=== PATIENT | female | born 1965 | race Caucasian/White ===

== ENCOUNTER 2024-05-09 23:31 | Emergency (ER) | payer MEDICARE, SELFPAY ==
[2024-05-09 23:32] VITALS: BP 121/86; PULSE 70; TEMP 36.5; O2SAT 98
[2024-05-09 23:39] VITALS: BP 121/86; PULSE 89; RESP 18; TEMP 36.5; O2SAT 96
--- NOTE | 2024-05-10 | ED_ITS ---
HPI - Extremity Problem General Chief complaint: Extremity Problem,Nontraumatic Stated complaint: pinched nerve Time Seen by Provider: 05/09/24 23:48 History of Present Illness HPI Narrative: 59-year-old female with a past medical history including chronic peripheral neuropathy, alcohol abuse, rheumatoid arthritis, hemochromatosis. Patient presents from her long-term facility for concerns of bilateral paresthesias in her hands and feet. She states she was having pain in her arms and legs that feel like paresthesias and neuropathy type pain. She exhibited them after working out intensely at physical therapy today. She states she has been trying to recover and get her strength back so she can go back home. She is in the nursing facility for rehabilitation. No recent hospitalizations or injuries. Denies any fever, chills, headache, vision change, abdominal pain, weakness. 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 No facial asymmetry. States it feels like her neuropathy is acting up on her and maybe even pinched nerve but it is symmetric in both arms and legs. No falls or trauma. Related Data Allergies Allergy/AdvReac Type Severity Reaction Status Date / Time Sulfa (Sulfonamide Allergy Unknown Unknown Verified 05/09/24 23:40 Antibiotics) Review of Systems 2 Review of Systems: As reviewed above in HPI Exam 2 Narrative: GENERAL: Thin and frail but not any acute distress, answering all questions appropriately, awake alert oriented. HEAD: [Normocephalic, atraumatic.] EYES: [PERRLA and EOMI.] ENT: Nares clear, no rhinorrhea or epistaxis. Mucous membranes moist. NECK: Supple. CHEST: [Clear to auscultation. No respiratory distress.] HEART: [Regular rate and rhythm]. No murmur heard. [Normal peripheral pulses.] ABDOMEN: [Soft, nondistended], [nontender], [No rigidity or guarding] EXTREMITIES: Normal range of motion. [No edema.] SKIN: Warm, dry, no rash. NEURO: [No focal deficits]. Alert and oriented [x3.] No drift in the arms or legs, symmetric strength throughout both arms and legs. No sensory deficits. No numbness. No facial asymmetry. PSYCH: [Normal mood and affect.] Course Vital Signs Vital signs: Vital Signs Temperature 36.5 C 05/09/24 23:32 Pulse Rate 70 05/09/24 23:32 Blood Pressure 121/86 05/09/24 23:32 Pulse Oximetry 98 05/09/24 23:32 Oxygen Delivery Room Air 05/09/24 23:32 Temperature 36.5 C 05/09/24 23:39 Pulse Rate 89 05/09/24 23:39 Respiratory Rate 18 05/09/24 23:39 Blood Pressure 121/86 05/09/24 23:39 Pulse Oximetry 96 05/09/24 23:39 Oxygen Delivery Room Air 05/09/24 23:32 MDM - Extremity (Nontraumatic) MDM Narrative Medical decision making narrative: 59-year-old female presenting from long-term facility for concerns of bilateral paresthesias in her hands and feet. She has a history of chronic neuropathy and paresthesias. Alcohol abuse in the past, rheumatoid arthritis, hemochromatosis. She is at her nursing facility for rehabilitation she was malnourished and had generalized weakness at home. She otherwise appears well, very active, alert oriented, normal vital signs, unremarkable examination with normal neurovascular assessment. No signs of any trauma or injury. She has symmetric strength and sensation, no facial asymmetries. Suspicion presently is for potential electrolyte derangements, malnutrition, rhabdomyolysis given the intense physical therapy she is doing, dehydration. Low suspicion for intracranial pathology and no present need for CT images. Will assess with basic laboratory studies, CBC, CMP, CPK and magnesium level. She was given a fluid bolus and Toradol for analgesia. She will be re-evaluated. Placed on nuclear monitoring technician. Patient's workup was reassuring. No leukocytosis, hemoglobin 10.1 with no baseline to compare to but appears chronic as she has macrocytosis. Normal platelet count. Electrolytes unremarkable. Normal renal function, normal hepatic function. Negative CPK. Patient was re-evaluated after Toradol with no significant change. Given her unremarkable workup and finding consistent with peripheral neuropathy with history of and I will give her short course of gabapentin to trial. Patient also told me that she was having some loose stools and on review of her medications at the facility she is on 6 different laxative type medications and likely causing this. She was given a dose of Imodium here. Patient is safe and stable for discharge at this time. Lab Data 05/10/24 00:06 05/10/24 00:06 Labs: Lab Results 05/10/24 Range/Units 00:06 WBC 5.5 (4.5-10.0) K/mm3 RBC 3.12 L (4.2-5.4) M/mm3 Hgb 10.1 L (12.0-15.0) g/dL Hct 32.2 L (37.0-47.0) % MCV 103.2 H (80-100) fl MCH 32.4 (26-34) pg MCHC 31.4 L (32-36) g/dl RDW 13.8 (11.5-14.5) % Plt Count 228 (150-375) k/mm3 MPV 9.5 (7.4-10.4) fl Immature Gran % (Auto) 0.2 (0-0.5) % Neut % (Auto) 62.9 (45.5-73.1) % Lymph % (Auto) 24.4 (18.3-44.2) % Baca % (Auto) 8.8 H (2.6-8.5) % Eos % (Auto) 3.5 (0-4.4) % Baso % (Auto) 0.2 (0.2-1.2) % Lymph # (Auto) 1.33 (0.9-3.2) K/mm3 [place] # (Auto) 0.5 (0.1-0.6) K/mm3 Eos # (Auto) 0.2 (0-0.3) K/mm3 Baso # (Auto) 0.0 (0.0-0.1) K/mm3 Abs Immat Gran (auto) 0.01 (0.00-0.031) K/mm3 Absolute Neuts (auto) 3.4 (1.3-6.7) K/mm3 Absolute Nucleated RBC 0.000 (0.0-0.012) K/mm3 Nucleated RBC % 0.0 (0.0-0.2) % Sodium 140 (137-145) mmol/L Potassium 3.5 (3.4-5.0) mmol/L Chloride 106 (98-107) mmol/L Carbon Dioxide 30 (22-30) mmol/L Anion Gap 4 (4-12) mmol/L BUN 18 H (7-17) mg/dL Creatinine 0.73 (0.7-1.0) mg/dL Estim Creat Clear Calc 48 ml/min Estimated GFR > 60 (59 - ) Glucose 91 (65-110) mg/dL Calcium 9.2 (8.4-10.2) mg/dL Magnesium 2.0 (1.6-2.3) mg/dL Total Bilirubin 0.2 (0.2-1.3) mg/dL AST 25 (14-36) U/L ALT 16 (6-35) U/L Alkaline Phosphatase 139 H (38-126) U/L Total Creatine Kinase 23 L (30-135) U/L Total Protein 6.0 L (6.3-8.2) g/dL Albumin 3.6 (3.5-5.1) g/dL Discharge Plan Discharge Clinical Impression: Peripheral neuropathy, Diarrhea Patient Disposition: NH Halfway/Asst Living Condition: Stable Instructions: Antibiotic Form Additional Instructions: Your workup here was very reassuring, we will send you home with some gabapentin which can help with peripheral neuropathy in nerve type pain which sounds like what you are experiencing. Your diarrhea is likely caused by your multiple medications that include several different laxatives. We have given you a dose of Imodium here and recommend that your nursing facility cut back on your laxative medications Patient Language: Micronesian Prescriptions: New gabapentin 100 mg capsule 100 mg PO TID PRN (Reason: Peripheral neuropathy) Qty: 30 0RF Stand Alone Forms: Senior Care Discharge Time of Disposition: 01:05
[2024-05-10 00:11] LABS: Basophils Percent Auto 0.2 % (0.2-1.2); Eosinophils Absolute Auto 0.2 K/mm3 (0-0.3); Eosinophils Percent Auto 3.5 % (0-4.4); Hematocrit 32.2 % (37.0-47.0); Hemoglobin 10.1 g/dL (12.0-15.0); Immature Granulocyte Absolute 0.01 K/mm3 (0.00-0.031); Immature Granulocyte Percent A 0.2 % (0-0.5); Lymphocytes Absolute Auto 1.33 K/mm3 (0.9-3.2); Lymphocytes Percent Auto 24.4 % (18.3-44.2); Mean Corpuscular HGB Conc 31.4 g/dl (32-36); Mean Corpuscular Hemoglobin 32.4 pg (26-34); Mean Corpuscular Volume 103.2 fl (80-100); Mean Platelet Volume 9.5 fl (7.4-10.4); Monocytes Absolute Auto 0.5 K/mm3 (0.1-0.6); Monocytes Percent Auto 8.8 % (2.6-8.5); Neutrophils Absolute Auto 3.4 K/mm3 (1.3-6.7); Neutrophils Percent Auto 62.9 % (45.5-73.1); Platelet Count Result 228 k/mm3 (150-375); Red Blood Count 3.12 M/mm3 (4.2-5.4); Red Cell Distribution Width 13.8 % (11.5-14.5); White Blood Count 5.5 K/mm3 (4.5-10.0)
[2024-05-10 00:23] LABS: Alanine Aminotransferase 16 U/L (6-35); Albumin Level 3.6 g/dL (3.5-5.1); Alkaline Phosphatase 139 U/L (38-126); Anion Gap 4 mmol/L (4-12); Aspartate Amino Transferase 25 U/L (14-36); Bilirubin,Total 0.2 mg/dL (0.2-1.3); Blood Urea Nitrogen 18 mg/dL (7-17); Calcium 9.2 mg/dL (8.4-10.2); Carbon Dioxide 30 mmol/L (22-30); Chloride 106 mmol/L (98-107); Creatine Kinase 23 U/L (30-135); Estimated CRCL calculation 48 ml/min; Estimated Glomerular Filt Rate > 60; Glucose 91 mg/dL (65-110); Potassium 3.5 mmol/L (3.4-5.0); Sodium 140 mmol/L (137-145)
[2024-05-10] MEDS: KETOROLAC 15 MG/ML VIAL (*BKC) IV PUSH (00:31)
[2024-05-10] MEDS: LACTATED RINGERS 1,000 ML 999 ML IV CONT (00:32)
--- OUTSIDE RECORDS SUMMARY | 2024-05-10 01:24 | XMS_ITS | Clinical Summary ---
Author Organization [facility] [employer] Address [address] [place] [address] Care Team Providers Care Estimating Engineer Name Role Phone Roselia Johnson MD Unavailable [phone] Blair Sun DO Unavailable [phone] Gerry Sweeney MD Unavailable [phone] Orestes Arrieta MD Unavailable [phone] Geno Montes MD Primary Care Provider Source Comments [facility],non-owned Affiliates and Associated Physician Practices is amultiple site organization consisting of ambulatory clinics and hospital sitesin [place], [place], [place] and [place]. This disclosure is being madepursuant to the Care Everywhere program and may not contain all information available regarding this patient. Last updated 17.[facility] [employer] Allergies Active Allergy Reactions Criticality Noted Date Comments Hydromorphone 05/31/2012 Nausea/vomiting Nitrofurantoin GI Discomfort 10/01/2021 Methotrexate Nausea and/or Vomiting 01/12/2015 Severe nausea, mood swings, blurred vision, dizziness Morphine Itching Low 08/29/2014 Patient reports she tolerates morphine (10/06/2021) Naproxen Nausea and/or Vomiting 03/08/2018 Fluoxetine Other 02/18/2012 wiped me out Sulfa Drugs Other 10/25/2014 Makes psoriasis worse Tramadol Headache 08/28/2022 Tofacitinib Citrate Nausea and/or Vomiting 08/2019 Memory loss Medications * Be aware that medications may not be up to date on this document. Alwaysverify current medications with the patient. Medication Sig Dispensed Refills Start Date End Date Status omeprazole (PriLOSEC) 20 MG capsuleIndication s:Gastroesophagea l Reflux Disease Take 1 (one) capsule by mouth daily before breakfast Reasons: Gastroesophageal Reflux Disease Active Premarin 0.625 MG tabletIndications :Postmenopausal Osteoporosis Take 1 (one) tablet by mouth once daily Reasons: Postmenopausal Osteoporosis 10/04/2021 Active folic acid (Folvite) 1 MG tabletIndications :Folate Deficiency Anemia Take 1 (one) tablet by mouth once daily 90 tablet 4 12/04/2021 Active Spacer/Aero-Holdi ng Chambers CLEM Use 1 device as needed 1 device 12/05/2021 Active Vitamin D3, cholecalciferol, 50 MCG (2000 UT) tabletIndications :Vitamin D Deficiency Take 1 (one) tablet by mouth once daily Reasons: Vitamin D Deficiency Active cyanocobalamin (Vitamin B-12) 1000 MCG tabletIndications :Vitamin B12 Deficiency Take 1 (one) tablet by mouth once daily Reasons: Inadequate Vitamin B12 Active albuterol HFA (Proventil; Ventolin; Proair) 108 (90 Base) MCG/ACT inhaler INHALE 2 PUFFS BY MOUTH EVERY 6 HOURS NEEDED 18 g 1 05/28/2022 Active temazepam (Restoril) 30 MG capsuleIndication s:Insomnia TAKE 1 CAPSULE BY MOUTH EVERYDAY AT BEDTIME 30 capsule 06/18/2022 Active Additional Information Patient not taking.Reported on 12/03/2022 acetaminophen-cod eine (Tylenol #3) 300-30 MG tablet 07/01/2022 Active fluconazole (Diflucan) 100 MG tablet Take 1 (one) tablet by mouth once daily 07/01/2022 Active lidocaine (Lidoderm) 5 % patchIndications: Postherpetic Neuralgia Apply 1 (one) patch to skin once daily Apply patch to most painful area and remove after 12 hours. May reapply a new patch 12 hours later. 15 patch 08/19/2022 Active hydrocortisone (Hytone) 1 % creamIndications: Dermatitis Apply to affected area 2 times daily 60 g 09/25/2022 Active temazepam (Restoril) 15 MG capsule Take 1 (one) capsule by mouth nightly as needed for Insomnia 30 capsule 1 10/24/2022 Active Additional Information Patient not taking.Reported on 12/03/2022 temazepam (Restoril) 15 MG capsule Take 1 (one) capsule by mouth nightly as needed for Insomnia 30 capsule 1 11/07/2022 Active Additional Information Patient not taking.Reported on 12/03/2022 omeprazole EC (PriLOSEC OTC) 20 MG tablet Take 1 (one) tablet by mouth daily before breakfast Active predniSONE (Deltasone) 20 MG tabletIndications :Contact Dermatitis Take 3 tablets daily for 3 days, take 2 tablets daily for 3 days, take 1 tablet daily for 3 days. Reasons: Contact Dermatitis 18 tablet 01/28/2023 Active promethazine-DM syrup Take 5 mL by mouth every 6 hours as needed for Cough 240 mL 01/28/2023 Active HYDROcodone-aceta minophen (Trenton) 5-325 MG tabletIndications :Pain Take 1 (one) tablet by mouth 2 times daily as needed for Pain 60 tablet 01/28/2023 Active ondansetron, disintegrating, (Zofran ODT) 4 MG tablet Take 1 (one) tablet by mouth every 6 hours as needed for Nausea/Vomiting Allow tablet to dissolve on the tongue 12 tablet 1 02/17/2023 Active ixekizumab (Taltz) 80 MG/ML auto-injector penIndications:Ps oriatic arthritis (HCC) INJECT 1 PEN (80MG) SUBCUTANEOUSLY EVERY 28 DAYS Dx: L40.50 NO LOADING NEEDED this is Continuation from other pharmacy. 1 mL 2 04/16/2023 Active pregabalin (Lyrica) 25 MG capsule Take 25 mg by mouth 3 times daily. 02/22/2024 Active metoclopramide (Reglan) 5 MG tablet Take 5 mg by mouth 3 times daily before meals. 02/22/2024 Active HYDROcodone-aceta minophen (Trenton) 7.5-325 MG tabletIndications :Pain Take 1 tablet by mouth every 8 hours as needed for Pain (MODERATE TO SEVER). Indications: Pain 02/22/2024 Active traZODone (Desyrel) 50 MG tablet Take 25 mg by mouth nightly as needed for Insomnia. TAKE 1/2 TABS OF 50MG TO EQUAL 25MG AT HS PRN 02/22/2024 Active diphenoxylate-atr opine (Lomotil) 2.5-0.025 MG tablet Take 1 tablet by mouth 4 times daily. 02/22/2024 Active Active Problems Problem Noted Date Diagnosed Date Bilateral foot pain 09/29/2022 Acute pain of right knee 06/23/2022 Primary osteoarthritis of right knee 06/23/2022 Protein-calorie malnutrition, unspecified severi ty 03/31/2022 Acute kidney injury 10/06/2021 Paraparesis 07/04/2021 Abnormal findings on diagnostic imaging of diges tive system 06/11/2021 Gastroesophageal reflux disease with esophagitis 06/11/2021 Closed wedge fracture of lum bar vertebra, unspecified lumbar vertebral level, initial encounter 05/29/2021 Inflammatory polyarthropathy 02/20/2021 Immunosuppressed status 02/20/2021 Chronic obstructive pulmonary disease 02/20/2021 Elevated LFTs 10/04/2018 Degeneration of lumbar or lumbosacral interverte bral disc 09/07/2018 Gastroesophageal reflux disease 07/28/2018 Nausea & vomiting 07/28/2018 Dumping syndrome 12/14/2017 Sucrose intolerance 12/14/2017 Elevated HDL 10/08/2017 Seasonal allergic rhinitis due to pollen 016 Chronic insomnia 08/27/2015 Psoriatic arthritis 04/18/2015 Bilateral hip joint arthritis 12/28/2014 Elevated ferritin level 02/14/2014 Benign hypertension 02/25/2013 Herniated nucleus pulposus, L5-S1 06/16/2012 Sciatica 06/16/2012 Radicular neuropathy 06/16/2012 Hemochromatosis 10/03/2010 Palpitations 01/25/2010 Abnormal loss of weight 01/25/2010 Resolved Problems Problem Noted Date Diagnosed Date Resolved Date Sore throat 04/08/2018 04/15/2018 Rheumatoid arthritis involvi ng multiple sites with positive rheumatoid factor 11/19/2015 11/19/19 16 Psoriatic arthritis 05/22/2015 11/19/19 16 Overview (05/22/2015): Psoriatic arthritis (diagnosis based on psoriasis, polyarthralgia, inflammatory back pain, elevated CRP in the past, psoriatic nail changes, x-rays of bilateral hip consistent with sclerosis), initially started on methotrexate and folic acid without much improvement so started on Enbrel in April, Diarrhea 02/17/2014 12/16/2017 Burn 05/13/2011 06/17/2017 Chest pain 01/25/2010 06/17/2017 Encounters Date Type Department Care Team Description 04/20/2024 Transitional Care [facility] - Care Coordination [address] [place] [address] Angle Ruvalcaba, suspender maker 04/20/2024 Patient Outreach [facility] - Care Coordination [address] [place] [address] Angle Ruvalcaba, RN Transitions Of Care 04/15/2024 Patient Outreach [facility] - Care Coordination [address] [address] Angle Ruvalcaba, RN Transitions Of Care 04/08/2024 Patient Outreach [facility] - Care Coordination [address] [address] Angle Ruvalcaba, RN Transitions Of Care 04/01/2024 Transitional Care [facility] - Care Coordination [address] [address] Angle Ruvalcaba, suspender maker 04/01/2024 Transitional Care [facility] Care Coordination [address] [place] [address] Blair Judge, RAVI Transitions Of Care 03/08/2024 Home Care Visit [facility] Health at [facility] [address], [place] [address] Niki Stern, RN CARE CONFERENCE 03/07/2024 10:00 AM [employer] Home Care Visit [facility] at Home Home [facility] [address], [place] [address] Carleen Morel, RAVI SN OASIS DISCHARGE 03/01/2024 Home Care Visit [facility] at [facility] [address], [place] [address] Niki Stern, RN CASE COMMUNICATION 03/01/2024 Home Care Visit [facility] at [facility] [address], [place] [address] Niki Stern, RN CASE COMMUNICATION 03/01/2024 Home Care Visit [facility] [address] [phone] Niki Stern, RN CASE COMMUNICATION 02/29/2024 9:45 AM [employer] Home Care Visit [facility] [address] , [address] [phone] Niki Stern, RN SN HOME VISIT 02/29/2024 Home Care Visit [facility] [address] , [address] [phone] Niki Stern, RN CASE COMMUNICATION 02/24/2024 2:30 PM [employer] Home Care Visit [facility] [address] , [address] [phone] Costa Epperson LPN SN HOME VISIT 02/24/2024 Home Care Visit [facility] [address] , [address] [phone] Avril Medina, RAVI CASE COMMUNICATION 02/22/2024 8:00 AM [employer] Home Care Visit [facility] [address] , [address] [phone] Will Samayoa MD Carson, Andrea K, RN SN OASIS START OF CARE 02/22/2024 Home Care Visit [facility] [address] , [address] [phone] Niki Stern, RN CASE COMMUNICATION 02/22/2024 Plan of Care Documentation [facility] [address] , [address] [phone] 02/17/2024 Transcribe Orders [facility] Scheduling [address] [place] [address] Tomeka Dunbar Non-pressure chronic ulcer of right calf with fat layer exposed ; Nicotine dependence, other tobacco product, with unspecified nicotine-induced disorders from Last 3 Months Immunizations Name Administration Dates Next Due INFLUENZA VACCINE 10/23/2017, 7,10/30/2015,2014,12/19/2011 INFLUENZA VACCINE, CELL CULT URE, QUADR. (FLUCELVAX QUADRIVALENT; 6MO+) (CCIIV4) 11/11/2018 INFLUENZA VACCINE, QUADR. (F LUZONE; FLULAVAL; FLUARIX; AFLURIA QUADRIVALENT; 6MO+), 0.5 ML (IIV4) 12/13/2021,10/19/2020,09/23/2019,2017 Pneumococcal Pcv13 Conj 01/02/2020,02/14/2014 TD (AGE 7-ADULT) 01/25/1999 TDAP (7yrs+) 06/17/2017 TDAP, HISTORIC VACCINE 06/18/2017 Family History Medical History Relation Name Comments Brain Tumor Father Cancer - Lung Father Diabetes - Type 2 Mother Other - Hepatic/Liver Mother Relation Name Status Comments Father Mother Social History Tobacco Use Types Packs/Day Years Used Date Smoking Tobacco: Every Day Cigarettes 0.3 17 Smokeless Tobacco: Never Tobacco Cessation:Ready to Q uit: No; Counseling Given: Yes Comments:3 cig/day. Reports quitting cold turkey in the past. She states that she will quit once her divorce is finalized Alcohol Use Standard Drinks/Week Comments Not Currently 2 (1 standard drink = 0.6 oz pur e alcohol) OASIS D0700: Social Isolation Answer Da te Recorded Frequency of experiencing loneliness or isolatio n Never 03/07/2024 OASIS A1250: Transportation Answer Date Recorded Lack of Transportation (Medical) No 03/07/2024 Lack of Transportation (Non-Medical) No 03/07/2024 Patient Unable or Declines to Respond No 03/07/2024 OASIS B1300: Health Literacy Answer Bassam e Recorded Frequency of needing help to read materials from doctor or pharmacy Never 03/07/2024 AUDIT-C Answer Date Recorded Q1: How often do you have a drink containing alc ohol? Patient declined 11/19/2022 Average Number of Drinks Not on file 023 Frequency of Binge Drinking Not on file 11/09 PHQ-2 Answer Date Recorded Patient Health Questionnaire-2 Score 0 09/25/2022 Hunger Vital Sign Answer Date Recorded Within the past 12 months, y ou worried that your food would run out before you got the money to buy more. Never true 10/08/19 22 Within the past 12 months, t he food you bought just didn't last and you didn't have money to get more. Never true 10/07/2021 Education Answer Date Recorded What is the highest level of school you have completed or the highest degree you have received? Some college, no degree 06/23/2022 Sex and Gender Information Value Date Recorded Sex Assigned at Not on file Gender Identity Not on file Sexual Orientation Not on file Last Filed Vital Signs Vital Sign Reading Time Taken Comments Blood Pressure 112/84 03/07/2024 10:22 AM [employer] Pulse 77 03/07/2024 10:22 AM [employer] Temperature 36.2 C (97.2 F) 03/07/2024 10:22 AM [employer] Respiratory Rate 16 03/07/2024 10:22 AM [employer] Oxygen Saturation 95% 03/07/2024 10:22 AM [employer] Inhaled Oxygen Concentration - - Weight 42.2 kg (93 lb) 02/29/2024 1:50 PM [employer] Height 172.7 cm (5' 8 ) 02/29/2024 1:50 PM [employer] Body Mass Index 14.14 02/29/2024 1:50 PM [employer] Plan of Treatment Health Maintenance Due Date Last Done Comments COLOGUARD (AGES 45-75) - COLON CA SCREENING 1965 CT COLONOGRAPHY - COLON CA SCREENING 1965 FIT - COLON CA SCREENING 1965 FLEX SIG - COLON CA SCREENING 1965 HEPATITIS B VACCINE (1 of 3 - 19+ 3-dose series) 1984 ZOSTER VACCINE (1 of 2) 1984 PNEUMOCOCCAL VACCINE 50+ (2 of 2 - PPSV23) 02/27/2020 01/02/2020, 02/14/2014 MAMMOGRAM 05/11/2023 05/10/2021, 04/0 02/2021, 05/10/2021 (Done Outside Per Report), Additional history exists COVID-19 VACCINE ( season) 2023 09/25/2021, 10/26/2020, 05/09/2020, Additional history exists DEPRESSION SCREENING 02/10/2024 03/14/2022, 06/08/19 22 MEDICARE AWV CALENDAR YEAR 2024 COLON MONITORING 03/01/2024 03/01/2014, 03/01/2014 DTAP/TDAP/TD VACCINES (4 - Td or Tdap) 06/19/2027 06/18/2017, 06/17/2017, 01/25/1999 LIPID TESTING 08/21/2027 08/20/2022, 09/09, 04/26/2016, Additional history exists COLONOSCOPY - COLON CA SCREENING 04/29/2033 04/30/2023, 03/01/2014, 03/01/2014 Colorectal Cancer Screening 04/29/2033 HIV SCREENING Completed 02/16/2014 HEPATITIS C SCREENING Completed 01/21/2022 , 09/17/2021, 11/10/2020, Additional history exists INFLUENZA VACCINE Completed 11/09/2023, , 12/13/2021, Additional history exists HIB VACCINE Aged Out No longer eligi ble based on patient's age to complete this topic HPV VACCINE Aged Out No longer eligi ble based on patient's age to complete this topic MENINGOCOCCAL (Group B) VACCINE SHARED DECISION-MAKING Aged Out No longer eligible based on patient's age to complete this topic MENINGOCOCCAL GROUPS A/C/Y/W VACCINE Aged Out No longer eligible based on patient's age to complete this topic Goals Goal Patient Goal Type Associated Problems Recent Progress Patient-Stated? Author Blood Pressure < 140/90 Blood Pressure 112/84(2024 10:22 AM [employer]) No Marc Strauss Quit smoking / using tobacco Lifestyle Not on track( 016 8:08 AM CDT) No Vicky Arvizu Procedures Procedure Name Priority Date/Time Associated Diagnosis Comments LIPID PROFILE Routine 08/20/2022 12:39 PM CDT Lipid screening HEPATITIS SCREEN ACUTE ([facility]) Routine 01/21/2022 10:56 AM [employer] Psoriatic arthritis Primary osteoarthritis of right hip Vitamin D deficiency Psoriasis Chronic radicular pain of lower back Immunosuppressed status Tendinitis of right rotator cuff Polyarthralgia High risk medications (not anticoagulants) long-term use Postmenopausal osteoporosis Trochanteric bursitis of both hips Elevated LFTs MAMMOGRAPHY ORDER Routine 07/29/2019 ENDOSCOPY, COLON, SCREENING Routine 03/01/2014 HIV-1 HIV-2 ANTIBODY W/ REFLX CONFIRM 02/16/2014 7:51 AM [employer] from Last 3 Months or Most Recently Relevant to Health Maintenance Results * (ABNORMAL) LIPID PROFILE (LIPID PANEL) (08/20/2022 12:39 PM CDT) Cholesterol 147 100 - 199 mg/dL [facility] INSURANCE BILL Triglycerides 175(H) 0 - 149 mg/dL [facility] INSURANCE BILL HDL Cholesterol 52 >39 mg/dL [facility] INSURANCE BILL VLDL Calculated 29 5 - 40 mg/dL [facility] INSURANCE BILL LDL Calculated 66 0 - 99 mg/dL [facility] INSURANCE BILL Comment NOT AVAILABLE [facility] INSURANCE BILL Comment:Result cannot be obt ained for this observation. Blood BLOOD SPECIMEN / Unknown 08/20/2022 12:39 PM CDT 08/20/2022 Narrative Resulting Agency Comment Lab Testing performed at: [id number] [place] [address] [facility] [id number] Geno Montes MD LAB - CHEMISTRY MARILU RIDLEY Performing Organization Address [facility] Co de Phone Number [facility] INSURANCE BILL [address] [place] [address] * HEPATITIS SCREEN ACUTE ([facility]) (01/21/2022 10:56 AM [employer]) Hepatitis A Virus Antibody IgM Negative Negative [facility] INSURANCE BILL Hepatitis B Virus Surface Antigen Negative Negative [facility] INSURANCE BILL Hepatitis B Core Virus Antibody IgM Negative Negative [facility] INSURANCE BILL Hepatitis C Antibody 0.3 0.0 - 0.9 s/co ratio [facility] INSURANCE BILL Blood BLOOD SPECIMEN / Unknown 01/21/2022 10:56 AM [employer] 01/21/2022 Narrative Resulting Agency Comment Lab Testing performed at: [facility] [place] [address] [facility] [id number] Roselia Johnson MD LAB - CHEMISTRY MARILU RIDLEY [facility] INSURANCE BILL [address] [place] [address] * MAMMOGRAPHY ORDER (07/29/2019) Anatomical Region Laterality Modality Mammography Provider Unknown MAMMO ORDERABLES * ENDOSCOPY, COLON, SCREENING (03/01/2014) Alessio Alejandra DO GI PROCEDURE ORDERAB LES * HIV-1 HIV-2 ANTIBODY W/ REFLX CONFIRM (02/16/2014 7:51 AM [employer]) HIV-1/HIV-2 NON-REACT TATUM NON-REACT TATUM [facility] Comment: A Nonreactive HIV 1/2 antibody result does not exclude HIV infection since the time frame for seroconversion is variable. If acute HIV infection is suspected, HIV-1 RNA TMA Qualitative (04632) testing is recommended. PLEASE NOTE: This information has been disclosed to you from records whose confidentiality may be protected by state law. If your state requires such protection, then the state law prohibits you from making any further disclosure of the information without the specific written consent of the person to whom it pertains, or as otherwise permitted by law. A general authorization for the release of medical or other information is NOT sufficient for this purpose. Test Performed at: [facility] [address] [place] [address] MAC PHELPS DO,MPH 02/16/2014 7:51 AM [employer] 02/16/2014 7:52 AM [employer] Alessio Alejandra DO LAB - SEROLOGY ORDER [facility] [address] [place] [address] from Last 3 Months or Most Recently Relevant to Health Maintenance Advance Directives * Full Code (Latest Code Status on File) Date Activated Date Inactivated Comments 10/06/2021 5:36 PM 10/09/2021 10:58 AM Care Teams Estimating Engineer Relationship Specialty [place] [address] [phone] PCP - General 04/02/23 [place] [id number] [phone] Rheumatology 05/22/15 Blair Sun DO [address] [address] Orthopedic Surgery 09/17/17 Gerry Sweeney MD [address] [facility] [address] [place] [address] Crts Interventional Cardiology 03/23/19 [place] [address] [facility] [address] [place] [address] Physical Medicine and Rehabilitation 04/10/20
--- OUTSIDE RECORDS SUMMARY | 2024-05-10 01:24 | XMS_ITS | Encounter Summary ---
Author Organization [employer] [facility] Address 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
--- OUTSIDE RECORDS SUMMARY | 2024-05-10 01:24 | XMS_ITS | Encounter Summary ---
Author Organization [facility] Health Address [address] [facility] [place] [address] Care Team Providers Care Employment Service Specialist Name Role Phone Alessio Alejandra DO Primary Care Provider Roselia Sung MD Unavailable [phone] Blair Sun DO Unavailable Gerry Sweeney MD Unavailable [phone] Orestes Arrieta MD Unavailable Alessio Alejandra DO Unavailable Unavailable Geno Montes MD Primary Care Provider Geno Montes MD Primary Care Provider [phone] Nolberto Richmond MD Unavailable [phone] Angie Tapia Unavailable Blair Judge RN Unavailable Angle Ruvalcaba RN Unavailable [phone] Encounter Details Date Type Department Care Team (Late st Contact Info) Description 11/06/2017 [facility] Outpatient Visit [facility] [address] [place] [address] [place] [address] [address] Social History Tobacco Use Types Packs/Day Years Used Date Smoking Tobacco: Every Day Cigarettes 0.5 17 Smokeless Tobacco: Never Alcohol Use Standard Drinks/Week Comments Yes 15 (1 standard drink = 0.6 oz pu re alcohol) 5 X weekly Sex and Gender Information Value Date Recorded Sex Assigned at Not on file Gender Identity Not on file Sexual Orientation Not on file documented as of this encounter Plan of Treatment Not on file documented as of this encounter Goals Goal Patient Goal Type Associated Problems Recent Progress Patient-Stated? Author Quit smoking / using tobacco Lifestyle Not on track( 016 8:08 AM CDT) No Vicky Arvizu documented as of this encounter Visit Diagnoses Not on filedocumented in this encounter Additional Health Concerns Infection Onset Date Last Indicated Resolved Time COVID-19 Under Investigation 02/11/2021 02/11/2021 02/11/2021 11:33 PM HEDIS MANAGER COVID-19 Under Investigation 02/20/2021 02/20/2021 02/20/2021 3:23 PM HEDIS MANAGER COVID-19 Under Investigation 10/06/2021 10/06/2021 10/06/2021 4:25 PM CDT documented as of this encounter Care Teams Employment Service Specialist Relationship Specialty Start Date End Date Alessio Aleajndra DO PCP - General 10/04/10 06/22/22 Alessio Alejandra DO PCP - Attributed-[facility] 08/09/20 08/26/22 [place] [address] [place] [phone] PCP - General Family Medicine 06/23/22 11/18/22 [place] [address] [place] [phone] PCP - General 04/02/23 Nolberto Richmond MD [address] [place] [address] PCP - Attributed-[facility] [place] 04/10/23 03/29/24 [place] [address] [facility] [address] [place] [address] Rheumatology 05/22/15 Blair Sun DO [address] [facility] [address] [place] [address] Orthopedic Surgery 09/17/17 Gerry Sweeney MD [address] [place] [address] Certified Nursing Assistant Instructor Interventional Cardiology 03/23/19 [place] [address] [facility] [address] [place] [address] Physical Medicine and Rehabilitation 04/10/20 Angie Tapia 05/25/23 05/25/23 Blair Judge, RAVI [address] [facility] [address] [place] [address] Body Component EngineerSystems Administrator 04/01/24 04/01/24 Angle Ruvalcaba RN Body Component EngineerSystems Administrator 04/01/24 04/20/24 documented as of this encounter
--- OUTSIDE RECORDS SUMMARY | 2024-05-10 01:24 | XMS_ITS | Encounter Summary ---
Author Organization [facility] Health Address [address] [place] [address] Care Team Providers Care Excel Vba Developer Name Role Phone Alessio Alejandra DO Primary Care Provider Roselia Sung MD Unavailable [phone] Blair Sun DO Unavailable [phone] Gerry Sweeney MD Unavailable [phone] Orestes Arrieta MD Unavailable Alessio Alejandra DO Unavailable Unavailable Geno Montes MD Primary Care Provider [phone] Geno Montes MD Primary Care Provider [phone] Nolberto Richmond MD Unavailable [phone] Angie Tapia Unavailable Alma Martinez DO Unavailable [phone] Alessio Alejandra DO Unavailable Unavailable Blair Judge RN Unavailable Angle Ruvalcaba RN Unavailable [phone] Encounter Details Date Type Department Care Team (Late st Contact Info) Description 12/31/2015 [facility] Outpatient Visit [facility] [address] [place] [address] [place] [address] [facility] [address] [place] [address] Social History Tobacco Use Types Packs/Day [...] Under Investigation 02/11/2021 02/11/2021 02/11/2021 11:33 PM HOSPICE EDUCATOR COVID-19 Under Investigation 02/20/2021 02/20/2021 02/20/2021 3:23 PM HOSPICE EDUCATOR COVID-19 Under Investigation 10/06/2021 10/06/2021 10/06/2021 4:25 PM CDT documented as of this encounter Care Teams Excel Vba Developer Relationship Specialty Start Date End Date Alessio Alejandra DO PCP - General 10/04/10 06/22/22 Alessio Alejandra DO PCP - Attributed-[facility] 08/09/20 08/26/22 [place] [address] [address] [place] [address] PCP - General Family Medicine 06/23/22 11/18/22 [place] [address] [address] [place] [address] PCP - General 04/02/23 Nolberto Richmond MD [address] [place] [address] PCP - Attributed-[facility] MA 04/10/23 03/29/24 Alma Martinez DO [address] [place] [address] PCP - Attributed-[place] [employer] 04/03/17 04/13/17 Alessio Alejandra DO PCP - Attributed-[place] [employer] 04/14/17 05/01/17 [place] [address] [facility] [address] [place] [phone] Rheumatology 05/22/15 Blair Sun DO [address] [facility] [address] [place] [address] Orthopedic Surgery 09/17/17 Gerry Sweeney MD [address] [facility] [address] [place] [address] Narrow Fabrics Weaver Interventional Cardiology 03/23/19 [place] [address] [facility] [address] [place] [address] Physical Medicine and Rehabilitation 04/10/20 Angie Tapia 05/25/23 05/25/23 Blair Judge, RAVI [address] [facility] [address] [place] [address] Demand Generation ManagerHouse Cleaner Supervisor 04/01/24 04/01/24 Angle Ruvalcaba RN Demand Generation ManagerHouse Cleaner Supervisor 04/01/24 04/20/24 documented as of this encounter
--- OUTSIDE RECORDS SUMMARY | 2024-05-10 01:24 | XMS_ITS | Encounter Summary ---
Author Organization [facility] Health Address [address] [facility] [address] Care Team Providers Care Speech/Language Therapist Name Role Phone Alessio Alejandra DO Primary Care Provider Roselia Sung MD Unavailable [phone] Blair Sun DO Unavailable [phone] Gerry Sweeney MD Unavailable [phone] Orestes Arrieta MD Unavailable [phone] Alessio Alejandra DO Unavailable Unavailable Geno Montes MD Primary Care Provider Geno Montes MD Primary Care Provider [phone] Nolberto Richmond MD Unavailable [phone] Angie Tapia Unavailable Blair Judge RN Unavailable Angle Ruvalcaba RN Unavailable [phone] Encounter Details Date Type Department Care Team (Late st Contact Info) Description 07/30/2020 [facility] Outpatient Visit EXTERNAL NON-[facility] DEPT Unknown, Provider Social History Tobacco Use Types Packs/Day Years Used Date Smoking Tobacco: Every Day Cigarettes 1 17 Smokeless Tobacco: Never Alcohol Use Standard Drinks/Week Comments Yes 10 (1 standard drink = 0.6 oz pu re alcohol) 10 weekly Sex and Gender Information Value Date Recorded Sex Assigned at Not on file Gender Identity Not on file Sexual Orientation Not on file COVID-19 Exposure Response Date Recorded In the last month, have you been in contact with someone who was confirmed or suspected to have Coronavirus / COVID-19? No / Unsure 07/16/2020 9:19 AM CDT documented as of this encounter Plan of Treatment Not on file documented as of this encounter Goals Goal Patient Goal Type Associated Problems Recent Progress Patient-Stated? Author Blood Pressure < 140/90 Blood Pressure 112/84(2024 10:22 AM GLAZE HANDLER) No Marc Strauss Quit smoking / using tobacco Lifestyle Not on track( 016 8:08 AM CDT) No Vicky Arvizu documented as of this encounter Visit Diagnoses Not on filedocumented in this encounter Additional Health Concerns Infection Onset Date Last Indicated Resolved Time COVID-19 Under Investigation 02/11/2021 02/11/2021 02/11/2021 11:33 PM GLAZE HANDLER COVID-19 Under Investigation 02/20/2021 02/20/2021 02/20/2021 3:23 PM GLAZE HANDLER COVID-19 Under Investigation 10/06/2021 10/06/2021 10/06/2021 4:25 PM CDT documented as of this encounter Care Teams Speech/Language Therapist Relationship Specialty Start Date End Date Alessio Alejandra DO PCP - General 10/04/10 06/22/22 Alessio Alejandra DO PCP - Attributed-[facility] 08/09/20 08/26/22 [place] [address] [place] [phone] PCP - General Family Medicine 06/23/22 11/18/22 [place] [address] [place] [address] PCP - General 04/02/23 Nolberto Richmond MD [address] [place] [address] PCP - Attributed-[facility] 04/10/23 03/29/24 [place] [address] [facility] [address] [place] [phone] Rheumatology 05/22/15 Blair Sun DO [address] [facility] [address] [place] [address] Orthopedic Surgery 09/17/17 Gerry Sweeney MD [address] [facility] [address] [place] [address] Firer Tunnel Kiln Interventional Cardiology 03/23/19 [place] [address] [facility] [address] [place] [address] Physical Medicine and Rehabilitation 04/10/20 Angie Tapia 05/25/23 05/25/23 Blair Judge RN [address] [facility] [address] [place] [address] Business Objects ConsultantNonprofit Fundraiser 04/01/24 04/01/24 Angle Ruvalcaba RN Business Objects ConsultantNonprofit Fundraiser 04/01/24 04/20/24 documented as of this encounter
--- OUTSIDE RECORDS SUMMARY | 2024-05-10 01:24 | XMS_ITS | Encounter Summary ---
Author Organization [employer] Address [address] [place] [address] Care Team Providers Care Garment Presser Name Role Phone Justyn Alessio Mo BANEGAS Primary Care Provider Bay mcdonald Encounter Details Date Type Department Care Team (Late st Contact Info) Description 01/07/2006 Inpatient Historical [facility] Ren Ochoa MD [address] [facility] [address] [place] [address] Dysmenorrhea (Primary Dx) Social History Tobacco Use Types Packs/Day Years Used Date Smoking Tobacco: Never Assessed Comments Unknown Sex and Gender Information Value Date Recorded Sex Assigned at Not on file Legal Sex Female 4:58 AM SENIOR INTERACTION DESIGNER Gender Identity Not on file Sexual Orientation Not on file documented as of this encounter Plan of Treatment Not on file documented as of this encounter Procedures Procedure Name Priority Date/Time Associated Diagnosis Comments POC , URINE Routine 01/07/2006 10:56 AM SENIOR INTERACTION DESIGNER HEMOGLOBIN AND HEMATOCRIT Routine 12/26/2005 12:20 PM SENIOR INTERACTION DESIGNER documented in this encounter Results * POC , URINE (01/07/2006 10:56 AM SENIOR INTERACTION DESIGNER) HCG QUAL URINE Negative Negative INTER FACE SYSTEM SPECIFIC GRAVITY UA 1.030 1.001 - 1.035 INTERFACE SYSTEM 01/07/2006 10:5 6 AM SENIOR INTERACTION DESIGNER us Ren Ochoa MD POINT OF CARE TESTING Final R esult INTERFACE SYSTEM Refer to clinic/hospital department * HEMOGLOBIN AND HEMATOCRIT (12/26/2005 12:20 PM SENIOR INTERACTION DESIGNER) HEMOGLOBIN 14.6 11.8 - 14.8 g/dL INTERFACE SYSTEM HEMATOCRIT 42.7 35.5 - 44.0 % INTERFACE SYSTEM 12/26/2005 12:2 0 PM SENIOR INTERACTION DESIGNER us Ren Ochoa MD HEMATOLOGY ORDERABLES Final R esult INTERFACE SYSTEM Refer to clinic/hospital department documented in this encounter Visit Diagnoses Diagnosis Dysmenorrhea- Primary documented in this encounter Care Teams Garment Presser Relationship Specialty Start Date End Date Alessio Alejandra DO PCP - General Family Practice 05/10/11 documented as of this encounter
--- OUTSIDE RECORDS SUMMARY | 2024-05-10 01:24 | XMS_ITS | Encounter Summary ---
Author Organization [facility] Address [address] [facility] [place] [address] Care Team Providers Care Configuration Management Analyst Name Role Phone Alessio Alejandra DO Primary Care Provider Roselia Sung MD Unavailable [phone] Blair Sun DO Unavailable [phone] Gerry Sweeney MD Unavailable [phone] Orestes Arrieta MD Unavailable Alessio Alejandra DO Unavailable Unavailable Geno Montes MD Primary Care Provider Geno Montes MD Primary Care Provider Nolberto Richmond MD Unavailable [phone] Angie Tapia Unavailable Blair Judge RN Unavailable Angle Ruvalcaba RN Unavailable Encounter Details Date Type Department Care Team (Late st Contact Info) Description 10/19/2017 [facility] Outpatient Visit [facility] Orthopedics - Radiology [address] [place], [place] [id number] Document, Scanned Social History Tobacco Use Types Packs/Day Years [...] Under Investigation 02/11/2021 02/11/2021 02/11/2021 11:33 PM IT ADMIN COVID-19 Under Investigation 02/20/2021 02/20/2021 02/20/2021 3:23 PM IT ADMIN COVID-19 Under Investigation 10/06/2021 10/06/2021 10/06/2021 4:25 PM CDT documented as of this encounter Care Teams Configuration Management Analyst Relationship Specialty Start Date End Date Alessio Alejandra DO PCP - General 10/04/10 06/22/22 Alessio Alejandra DO PCP - Attributed-[facility] 08/09/20 08/26/22 [place] [address] [place] [address] PCP - General Family Medicine 06/23/22 11/18/22 [place] [address] [address] [place] [address] PCP - General 04/02/23 Nolberto [place] MD [facility] [address] [place], [place] [id number] PCP - Attributed-[facility] MA 04/10/23 03/29/24 [place] [address] [address] Rheumatology 05/22/15 Blair Sun DO [address] [facility] [address] [place] [address] Orthopedic Surgery 09/17/17 Gerry Sweeney MD [address] [facility] [address] [place] [address] Supervisor Of Officials Interventional Cardiology 03/23/19 [place] [address] [facility] [address] [place] [address] Physical Medicine and Rehabilitation 04/10/20 Angie Tapia 05/25/23 05/25/23 Blair Judge, RAVI [address] [place] [address] Human Resources AnalystLieutenant General 04/01/24 04/01/24 Angle Ruvalcaba RN Human Resources AnalystLieutenant General 04/01/24 04/20/24 documented as of this encounter
--- OUTSIDE RECORDS SUMMARY | 2024-05-10 01:24 | XMS_ITS | Encounter Summary ---
Author Organization [facility] Address [address] [facility] [address] [place] [address] Care Team Providers Care Sports Umpire Name Role Phone Alessio Alejandra DO Primary Care Provider Roselia Sung MD Unavailable [phone] Blair Sun DO Unavailable [phone] Gerry Sweeney MD Unavailable [phone] Orestes Arrieta MD Unavailable [phone] Alessio Alejandra DO Unavailable Unavailable Geno Montes MD Primary Care Provider [phone] Geno Montes MD Primary Care Provider Nolberto Richmond MD Unavailable [phone] Angie Tapia Unavailable Blair Judge RN Unavailable Angle Ruvalcaba RN Unavailable Encounter Details Date Type Department Care Team (Late st Contact Info) Description 12/13/2021 [facility] Outpatient Visit [facility] Health Cancer Care [address] [place] [address] [place] [address] [address] Social History Tobacco Use Types Packs/Day Years Used Date Smoking Tobacco: Every Day Cigarettes 0.3 17 Smokeless Tobacco: Never Comments:3 cig/day Alcohol Use Standard Drinks/Week Comments Yes 2 (1 standard drink = 0.6 oz pur e alcohol) AUDIT-C Answer Date Recorded Q1: How often do you have a drink containing alc ohol? 2-3 times a week 12/24/2020 Q2: How many drinks containi ng alcohol do you have on a typical day when you are drinking? 1 or 2 12/24/2020 Frequency of Binge Drinking Not on file 12/10 PHQ-2 Answer Date Recorded PHQ2 TOTAL SCORE 0 12/04/2021 Hunger Vital Sign Answer Date Recorded Within the past 12 months, y ou worried that your food would run out before you got the money to buy more. Never true 10/08/19 22 Within the past 12 months, t he food you bought just didn't last and you didn't have money to get more. Never true 10/07/2021 Sex and Gender Information Value Date Recorded Sex Assigned at Not on file Gender Identity Not on file Sexual Orientation Not on file COVID-19 Exposure Response Date Recorded In the last 10 days, have yo u been in contact with someone who was confirmed or suspected to have Coronavirus/COVID-19? No / Unsure 11/28/2021 8:11 AM CDT documented as of this encounter Plan of Treatment Not on file documented as of this encounter Goals Goal Patient Goal Type Associated Problems Recent Progress Patient-Stated? Author Blood Pressure < 140/90 Blood Pressure 112/84(2024 10:22 AM PAID INTERN) No Marc Strauss Quit smoking / using tobacco Lifestyle Not on track( 016 8:08 AM CDT) No Vicky Arvizu documented as of this encounter Visit Diagnoses Not on filedocumented in this encounter Care Teams Sports Umpire Relationship Specialty Start Date End Date Alessio Alejandra DO PCP - General 10/04/10 06/22/22 Alessio Alejandra DO PCP - Attributed-[facility] 08/09/20 08/26/22 [place] [address] [place] [phone] PCP - General Family Medicine 06/23/22 11/18/22 [place] [address] [phone] PCP - General 04/02/23 Nolberto [place] MD [address] [facility] [address] [place] [address] PCP - [facility] 04/10/23 03/29/24 [place] [address] [place] [address] [address] [place] [address] Rheumatology 05/22/15 Blair Sun DO [address] [place] [address] [address] [place] [address] Orthopedic Surgery 09/17/17 Gerry Sweeney MD [address] [place] [address] [place] [address] Retaining Room Cutter Interventional Cardiology 03/23/19 [place] [address] [facility] [address] [place] [address] Physical Medicine and Rehabilitation 04/10/20 Angie Tapia 05/25/23 05/25/23 Blair Judge RN [address] [facility] [address] [place] [address] Evp SalesInspecting Supervisor 04/01/24 04/01/24 Angle Ruvalcaba RN Evp SalesInspecting Supervisor 04/01/24 04/20/24 documented as of this encounter
--- OUTSIDE RECORDS SUMMARY | 2024-05-10 01:24 | XMS_ITS | Encounter Summary ---
Author Organization [facility] Address [address] [place] [address] Care Team Providers Care Blending Operator Name Role Phone Alessio Alejandra DO Primary Care Provider Roselia Sung MD Unavailable [phone] Blair Sun DO Unavailable [phone] Gerry Sweeney MD Unavailable [phone] Orestes Arrieta MD Unavailable Alessio Alejandra DO Unavailable Unavailable Geno Montes MD Primary Care Provider [phone] Geno Montes MD Primary Care Provider [phone] Nolberto [place] MD Unavailable [phone] Angie Tapia Unavailable Blair Judge RN Unavailable Angle Ruvlacaba RN Unavailable [phone] Encounter Details Date Type Department Care Team (Late st Contact Info) Description 09/24/2017 [facility] Outpatient Visit [facility] Orthopedics - Radiology [address] [place], [place] [id number] Document, Scanned Social History Tobacco Use Types [...] Under Investigation 02/11/2021 02/11/2021 02/11/2021 11:33 PM HEAD TURBINE OPERATOR COVID-19 Under Investigation 02/20/2021 02/20/2021 02/20/2021 3:23 PM HEAD TURBINE OPERATOR COVID-19 Under Investigation 10/06/2021 10/06/2021 10/06/2021 4:25 PM CDT documented as of this encounter Care Teams Blending Operator Relationship Specialty Start Date End Date Alessio Alejandra DO PCP - General 10/04/10 06/22/22 Alessio Alejandra DO PCP - Attributed-[facility] 08/09/20 08/26/22 [place] [address] [place] [address] PCP - General Family Medicine 06/23/22 11/18/22 [place] [address] [address] [place] [address] PCP - General 04/02/23 Nolberto [place] MD [facility] [address] [place], [place] [id number] PCP - Attributed-[facility] MA 04/10/23 03/29/24 [place] [address] [address] Rheumatology 05/22/15 Blair Sun DO [address] [facility] [address] [place] [address] Orthopedic Surgery 09/17/17 Gerry Sweeney MD [address] [facility] [address] [place] [address] Public Health Registrar Interventional Cardiology 03/23/19 [place] [address] [facility] [address] [place] [address] Physical Medicine and Rehabilitation 04/10/20 Angie Tapia 05/25/23 05/25/23 Blair Judge, RAVI [address] [place] [address] Ad TraffickerMatchbook Assembler 04/01/24 04/01/24 Angle Ruvalcaba RN Ad TraffickerMatchbook Assembler 04/01/24 04/20/24 documented as of this encounter
--- OUTSIDE RECORDS SUMMARY | 2024-05-10 01:24 | XMS_ITS | Encounter Summary ---
Author Organization [facility] Health Address [address] [place] [address] Care Team Providers Care Metal Roaster Name Role Phone Alessio Alejandra DO Primary Care Provider Roselia Sung MD Unavailable [phone] Blair Sun DO Unavailable [phone] Gerry Sweeney MD Unavailable [phone] Orestes Arrieta MD Unavailable Alessio Alejandra DO Unavailable Unavailable Geno Montes MD Primary Care Provider [phone] Geno Montes MD Primary Care Provider Nolberto Richmond MD Unavailable [phone] Angie Tapia Unavailable Alma Martinez DO Unavailable [phone] Alessio Alejandra DO Unavailable Unavailable Blair Judge RN Unavailable Angle Ruvalcaba RN Unavailable Encounter Details Date Type Department Care Team (Late st Contact Info) Description 06/18/2016 [facility] Outpatient Visit [facility] [address] [place] [address] [place] [address] [facility] [address] [place] [address] Social History Tobacco Use Types Packs/Day [...] Under Investigation 02/11/2021 02/11/2021 02/11/2021 11:33 PM PRINTER TECHNICIAN COVID-19 Under Investigation 02/20/2021 02/20/2021 02/20/2021 3:23 PM PRINTER TECHNICIAN COVID-19 Under Investigation 10/06/2021 10/06/2021 10/06/2021 4:25 PM CDT documented as of this encounter Care Teams Metal Roaster Relationship Specialty Start Date End Date Alessio Alejandra DO PCP - General 10/04/10 06/22/22 Alessio Alejandra DO PCP - Attributed-[facility] 08/09/20 08/26/22 [place] [address] [place] [address] PCP - General Family Medicine 06/23/22 11/18/22 [place] [address] [address] [place] [address] PCP - General 04/02/23 Nolberto Richmond MD [address] [place] [address] PCP - Attributed-[facility] [place] 04/10/23 03/29/24 Alma Martinez DO [address] [place] [address] PCP - Attributed-[place] [employer] 04/03/17 04/13/17 Alessio Alejandra DO PCP - Attributed-[place] [employer] 04/14/17 05/01/17 [place] [address] [facility] [address] [place] [address] Rheumatology 05/22/15 Blair Sun DO [address] [facility] [address] [place] [address] Orthopedic Surgery 09/17/17 Gerry Sweeney MD [address] [facility] [address] [place] [address] Orthodontist Vice President Interventional Cardiology 03/23/19 [place] [address] [facility] [address] [place] [address] Physical Medicine and Rehabilitation 04/10/20 Angie Tapia 05/25/23 05/25/23 Blair Judge, RAVI [address] [facility] [address] [place] [address] Gas Appliance AdjusterTailings Worker 04/01/24 04/01/24 Angle Ruvalcaba RN Gas Appliance AdjusterTailings Worker 04/01/24 04/20/24 documented as of this encounter
--- OUTSIDE RECORDS SUMMARY | 2024-05-10 01:24 | XMS_ITS | Encounter Summary ---
Author Organization [employer] Address [address] [place] [address] Care Team Providers Care Paper Coating Supervisor Name Role Phone Alessio Alejandra DO Primary Care Provider Bay mcdonald Encounter Details Date Type Department Care Team (Late st Contact Info) Description 01/22/2006 Outpatient Historical [facility] Maxim Burnette MD [address] [place], [place] [id number] Er, Authorized P NO ADDRESS ON FILE Other and Unspecified Ovarian Cyst (Primary Dx) Social History Tobacco Use Types Packs/Day Years Used Date Smoking Tobacco: Never Assessed Comments Unknown Sex and Gender Information Value Date Recorded Sex Assigned at Not on file Legal Sex Female 4:58 AM NARCOTICS AND/OR VICE DETECTIVE Gender Identity Not on file Sexual Orientation Not on file documented as of this encounter Plan of Treatment Not on file documented as of this encounter Procedures Procedure Name Priority Date/Time Associated Diagnosis Comments CBC WITH DIFFERENTIAL Routine 01/22/2006 5:18 PM NARCOTICS AND/OR VICE DETECTIVE CBC WITH DIFFERENTIAL Routine 01/22/2006 5:18 PM NARCOTICS AND/OR VICE DETECTIVE LIPASE Routine 01/22/2006 5:18 PM NARCOTICS AND/OR VICE DETECTIVE AMYLASE Routine 01/22/2006 5:18 PM NARCOTICS AND/OR VICE DETECTIVE COMPREHENSIVE METABOLIC PANEL Routine 01/22/2006 5:18 PM NARCOTICS AND/OR VICE DETECTIVE documented in this encounter Results * CBC WITH DIFFERENTIAL (01/22/2006 5:18 PM NARCOTICS AND/OR VICE DETECTIVE) NEUTROPHILS 57 45 - 70 % INTERFAC E SYSTEM LYMPHOCYTES 30 16 - 45 % INTERFAC E SYSTEM MONOCYTES 7 3 - 13 % INTERFACE SYSTEM EOSINOPHILS 6 0 - 7 % INTERFAC E SYSTEM BASOPHILS 0 0 - 2 % INTERFACE SYSTEM NEUTROPHIL ABSOLUTE 4.86 1.90 - 7.00 K/uL INTERFACE SYSTEM LYMPHOCYTE ABSOLUTE 2.55 0.70 - 4.50 K/uL INTERFACE SYSTEM MONOCYTE ABSOLUTE 0.60 0.10 - 1.30 K/uL INTERFACE SYSTEM EOSINOPHIL ABSOLUTE 0.52 0.00 - 0.70 K/uL INTERFACE SYSTEM BASOPHILS ABSOLUTE 0.03 0.00 - 0.20 K/uL INTERFACE SYSTEM 01/22/2006 5:18 PM NARCOTICS AND/OR VICE DETECTIVE Maxim Burnette MD HEMATOLOGY ORDERABLES Final Res ult Performing Organization Address City/[facility]/ZIP Co de Phone Number INTERFACE SYSTEM Refer to clinic/hospital department * (ABNORMAL) CBC WITH DIFFERENTIAL (01/22/2006 5:18 PM NARCOTICS AND/OR VICE DETECTIVE) WBC 8.6 4.0 - 9.8 K/uL INTERFACE SYSTEM RBC 3.79(L) 3.90 - 4.90 M/uL INTERFACE SYSTEM HEMOGLOBIN 12.1 11.8 - 14.8 g/dL INTERFACE SYSTEM HEMATOCRIT 35.4(L) 35.5 - 44.0 % INTERFACE SYSTEM MCV 93.4 82.0 - 99.0 fL INTERFACE SYSTEM MCH 31.9 27.2 - 32.6 pg INTERFACE SYSTEM MCHC 34.2 31.5 - 35.5 % INTERFACE SYSTEM RDW 13.1 11.5 - 14.5 % INTERFACE SYSTEM RDW-STDEV 44.1 37.1 - 48.7 fL INTERFACE SYSTEM PLATELETS 377(H) 140 - 350 K/uL INTERFACE SYSTEM MPV 9.8 9.3 - 12.4 fL INTERFACE SYSTEM 01/22/2006 5:18 PM NARCOTICS AND/OR VICE DETECTIVE Maxim Burnette MD HEMATOLOGY ORDERABLES Final Res ult Performing Organization Address City/[facility]/ZIP Co de Phone Number INTERFACE SYSTEM Refer to clinic/hospital department * LIPASE (01/22/2006 5:18 PM NARCOTICS AND/OR VICE DETECTIVE) LIPASE 29 13 - 60 U/L INTERFAC E SYSTEM 01/22/2006 5:18 PM NARCOTICS AND/OR VICE DETECTIVE Maxim Burnette MD CHEMISTRY ORDERABLES Final Resu lt INTERFACE SYSTEM Refer to clinic/hospital department * COMPREHENSIVE METABOLIC PANEL (01/22/2006 5:18 PM NARCOTICS AND/OR VICE DETECTIVE) GLUCOSE 79 65 - 99 mg/dL INTERFACE SYSTEM CREATININE 0.70 0.51 - 0.95 mg/dL INTERFACE SYSTEM Comment:Note: Effective 12/10 New Methodology and Reference Ranges CALCIUM 8.5 8.4 - 10.2 mg/dL INTERFACE SYSTEM ALKALINE PHOSPHATASE 79 35 - 104 U/L INTERFACE SYSTEM AST 15 12 - 32 U/L INTERFACE SYSTEM ALT 15 0 - 31 U/L INTERFACE SYSTEM TOTAL PROTEIN 7.4 6.3 - 8.6 g/dL INTERFACE SYSTEM ALBUMIN 4.5 3.4 - 4.8 g/dL INTERFACE SYSTEM BILIRUBIN TOTAL 0.3 0.2 - 1.0 mg/dL INTERFACE SYSTEM BUN 15 6 - 20 mg/dL INTERFACE SYSTEM SODIUM 139 135 - 145 mmol/L INTERFACE SYSTEM POTASSIUM 3.5 3.5 - 4.9 mmol/L INTERFACE SYSTEM CHLORIDE 102 96 - 108 mmol/L INTERFACE SYSTEM CO2 28 22 - 30 mmol/L INTERFACE SYSTEM GFR, >60 >=60 mL/min/1.7 sq meter INTERFACE SYSTEM GFR >60 >=60 mL/min/1.7 sq meter INTERFACE SYSTEM Comment: Estimated GFR rate interpretative information for both Americans and non- Americans is available on the [facility] [place] [place] Intranet at: [email or web address] Select: Lab Policies and Procedures Select: Reference Ranges - GFR 01/22/2006 5:18 PM NARCOTICS AND/OR VICE DETECTIVE Maxim Burnette MD CHEMISTRY ORDERABLES Final Resu lt Performing Organization Address City/[facility]/ZIP Co de Phone Number INTERFACE SYSTEM Refer to clinic/hospital department * AMYLASE (01/22/2006 5:18 PM NARCOTICS AND/OR VICE DETECTIVE) AMYLASE 54 28 - 100 U/L INTERFACE SYSTEM 01/22/2006 5:18 PM NARCOTICS AND/OR VICE DETECTIVE us Maxim Burnette MD CHEMISTRY ORDERABLES Final Resu lt INTERFACE SYSTEM Refer to clinic/hospital department documented in this encounter Visit Diagnoses Diagnosis Other and unspecified ovarian cyst- Primary documented in this encounter Care Teams Paper Coating Supervisor Relationship Specialty Start Date End Date Alessio Alejandra DO PCP - General Family Practice 05/10/11 documented as of this encounter
--- OUTSIDE RECORDS SUMMARY | 2024-05-10 01:24 | XMS_ITS | Encounter Summary ---
Author Organization [facility] Health Address [address] [place] [address] Care Team Providers Care Process Safety Specialist Name Role Phone Alessio Alejandra DO Primary Care Provider Roselia Sung MD Unavailable [phone] Blair Sun DO Unavailable [phone] Gerry Sweeney MD Unavailable [phone] Orestes Arrieta MD Unavailable Alessio Alejandra DO Unavailable Unavailable Geno Montes MD Primary Care Provider Geno Montes MD Primary Care Provider [phone] Nolberto Richmond MD Unavailable [phone] Angie Tapia Unavailable Blair Judge RN Unavailable Angle Ruvalcbaa RN Unavailable [phone] Encounter Details Date Type Department Care Team (Late st Contact Info) Description 09/07/2020 [facility] Outpatient Visit EXTERNAL NON-[facility] DEPT Unknown, [...] < 140/90 Blood Pressure 112/84(2024 10:22 AM PHYSICIAN CHIEF OF PATHOLOGY) No Carlos A Elvajaycob R Quit smoking / using tobacco Lifestyle Not on track( 016 8:08 AM CDT) No Vicky Arvizu documented as of this encounter Visit Diagnoses Not on filedocumented in this encounter Additional Health Concerns Infection Onset Date Last Indicated Resolved Time COVID-19 Under Investigation 02/11/2021 02/11/2021 02/11/2021 11:33 PM PHYSICIAN CHIEF OF PATHOLOGY COVID-19 Under Investigation 02/20/2021 02/20/2021 02/20/2021 3:23 PM PHYSICIAN CHIEF OF PATHOLOGY COVID-19 Under Investigation 10/06/2021 10/06/2021 10/06/2021 4:25 PM CDT documented as of this encounter Care Teams Process Safety Specialist Relationship Specialty Start Date End Date Alessio Alejandra DO PCP - General 10/04/10 06/22/22 Alessio Alejandra DO PCP - Attributed-[facility] 08/09/20 08/26/22 [place] [address] [facility] [address] [place] [address] PCP - General Family Medicine 06/23/22 11/18/22 [place] [address] [address] [place] [address] PCP - General 04/02/23 Nolberto [place] MD [facility] [address] [place] [address] PCP - Attributed-[facility] [place] 04/10/23 03/29/24 Roselia [place] [id number] [place] [address] [address] [place] [address] Rheumatology 05/22/15 Blair Sun DO [address] [facility] [address] [place] [address] Orthopedic Surgery 09/17/17 Gerry Sweeney MD [address] [facility] [address] [place] [address] Golf Club Weigher Interventional Cardiology 03/23/19 [place] [address] [facility] [address] [place] [address] Physical Medicine and Rehabilitation 04/10/20 Angie Tapia 05/25/23 05/25/23 Blair Judge, RAVI [address] [facility] [address] [place] [address] Counter RollerPython Architect 04/01/24 04/01/24 Angle Ruvalcaba RN Counter RollerPython Architect 04/01/24 04/20/24 documented as of this encounter
--- OUTSIDE RECORDS SUMMARY | 2024-05-10 01:24 | XMS_ITS | Encounter Summary ---
Author Organization [employer] [facility] Address [address] [place] [address] Care Team Providers Care Electronic Organ Technician Name Role Phone Alessio Alejandra DO Primary Care Provider Bay mcdonald Encounter Details Date Type Department Care Team (Late st Contact Info) Description 08/07/2008 Outpatient Historical [facility] Er, Authorized P NO ADDRESS ON FILE Diane Montiel MD NO ADDRESS ON FILE Lumbar Sprain and Strain; Contusion of Back; Other Overexertion and Strenuous and Repetitive Movements or Loads; Place of Occurrence, Home Social History Tobacco Use Types Packs/Day Years Used Date Smoking Tobacco: Never Assessed Comments Unknown Sex and Gender Information Value Date Recorded Sex Assigned at Not on file Legal Sex Female 4:58 AM SECURITY MANAGER Gender Identity Not on file Sexual Orientation Not on file documented as of this encounter Plan of Treatment Not on file documented as of this encounter Procedures Procedure Name Priority Date/Time Associated Diagnosis Comments XR SACRUM AND COCCYX Routine 08/07/2008 12:50 PM CDT documented in this encounter Results * XR SACRUM AND COCCYX (08/07/2008 12:50 PM CDT) Anatomical Region Laterality Modality Pelvis Other 08/07/2008 12:5 0 PM CDT Narrative 08/07/2008 1:15 PM CDT [facility] [address] [place], [place] [address] Admit Date: 08/07/2008 ANUJA ROMANO Sex: F Admit Prov: ER, AUTHORIZED P Date: 1965 Primary Care Prov: ABRAHAM BRYAN CMRN: [id number] Room: ER-A SSN: [id number] IMAGING SERVICES Ordering Prov: N/A Accession Number: [id number] Interpretation SACRUM AND COCCYX, 08/07/2008 CLINICAL HISTORY: Pain. FINDINGS: Three views of the sacrum and coccyx demonstrate no evidence of fracture. No radiopaque foreign bodies are seen. IMPRESSION: No fracture. . Dictated by: DALILA BLAIR 08/07/2008 13:03 Electronically signed by: DALILA BLAIR08/07/2008 13:14 Transcribed: 08/07/2008 13:07 DKT Procedure Note Dalila Baker MD - 08/07/2008 [facility] [address] [place], [place] [address] Admit Date: 08/07/2008 ANUJA ROMANO Sex: F Admit Prov: ER, AUTHORIZED P Date: 1965 Primary Care Prov: ABRAHAM BRYAN CMRN: [id number] Room: ER-A SSN: [id number] IMAGING SERVICES Ordering Prov: N/A Interpretation SACRUM AND COCCYX, 08/07/2008 CLINICAL HISTORY: Pain. FINDINGS: Three views of the sacrum and coccyx demonstrate no evidence offracture. No radiopaque foreign bodies are seen. IMPRESSION: No fracture. . Dictated by: DALILA BLAIR 08/07/2008 13:03 Electronically signed by: DALILA BLAIR08/07/2008 13:14 Transcribed: 08/07/2008 13:07 DKT us Diane Montiel MD DIAGNOSTIC IMAGING ORDERABLE S Final Result documented in this encounter Visit Diagnoses Diagnosis Sprain of lumbar region Contusion of back(922.31) Contusion of back Other overexertion and strenuous and repetitive movements or loads Place of occurrence, home documented in this encounter Care Teams Electronic Organ Technician Relationship Specialty Start Date End Date Alessio Alejandra DO PCP - General Family Practice 05/10/11 documented as of this encounter
--- OUTSIDE RECORDS SUMMARY | 2024-05-10 01:24 | XMS_ITS | Encounter Summary ---
Author Organization [facility] Address [address] [facility] [place] [address] Care Team Providers Care Mission Manager Name Role Phone Alessio Alejandra DO Primary Care Provider Roselia Sung MD Unavailable [phone] Blair Sun DO Unavailable [phone] Gerry Sweeney MD Unavailable [phone] Orestes Arrieta MD Unavailable Alessio Alejandra DO Unavailable Unavailable Geno Montes MD Primary Care Provider Geno Montes MD Primary Care Provider Nolberto [place] MD Unavailable [phone] Angie Tapia Unavailable Blair Judge RN Unavailable Angle Ruvalcaba RN Unavailable [phone] Encounter Details Date Type Department Care Team (Late st Contact Info) Description 11/12/2020 [facility] Outpatient Visit [facility] [address] [place] [address] Unknown, Provider Social History Tobacco Use Types [...] have Coronavirus / COVID-19? No / Unsure 11/12/2020 10:58 AM CDT documented as of this encounter Plan of Treatment Not on file documented as of this encounter Goals Goal Patient Goal Type Associated Problems Recent Progress Patient-Stated? Author Blood Pressure < 140/90 Blood Pressure 112/84(2024 10:22 AM STAGE SET DESIGNER) No Marc Strauss R Quit smoking / using tobacco Lifestyle Not on track( 016 8:08 AM CDT) No Vicky Arvizu documented as of this encounter Visit Diagnoses Not on filedocumented in this encounter Additional Health Concerns Infection Onset Date Last Indicated Resolved Time COVID-19 Under Investigation 02/11/2021 02/11/2021 02/11/2021 11:33 PM STAGE SET DESIGNER COVID-19 Under Investigation 02/20/2021 02/20/2021 02/20/2021 3:23 PM STAGE SET DESIGNER COVID-19 Under Investigation 10/06/2021 10/06/2021 10/06/2021 4:25 PM CDT documented as of this encounter Care Teams Mission Manager Relationship Specialty Start Date End Date Alessio Alejandra DO PCP - General 10/04/10 06/22/22 Alessio Alejandra DO PCP - Attributed-[facility] 08/09/20 08/26/22 [place] [address] [place] [address] PCP - General Family Medicine 06/23/22 11/18/22 [place] [address] [address] [place] [address] PCP - General 04/02/23 Nolberto [place] MD [address] [place] [address], [place] [address] PCP - Attributed-[facility] 04/10/23 03/29/24 [place] [address] [facility] [address] [place] [address] Rheumatology 05/22/15 Blair Sun DO [facility] [address] [place] [address] Orthopedic Surgery 09/17/17 Gerry Sweeney MD [facility] [address] [place] [address] Parts Chaser Interventional Cardiology 03/23/19 [place] [address] [facility] [address] [place] [address] Physical Medicine and Rehabilitation 04/10/20 Angie Tapia 05/25/23 05/25/23 Blair Judge, RAVI [address] [facility] [address] [place] [address] Drupal ArchitectBusiness Analyst 04/01/24 04/01/24 Angle Ruvalcaba RN Drupal ArchitectBusiness Analyst 04/01/24 04/20/24 documented as of this encounter
--- OUTSIDE RECORDS SUMMARY | 2024-05-10 01:24 | XMS_ITS | Encounter Summary ---
Author Organization [facility] Health Address [address] [place] [address] Care Team Providers Care Plate Painter Name Role Phone Alessio Alejandra DO Primary Care Provider Roselia Sung MD Unavailable [phone] Blair Sun DO Unavailable [phone] Gerry Sweeney MD Unavailable [phone] Orestes Arrieta MD Unavailable [phone] Alessio Alejandra DO Unavailable Unavailable Geno Montes MD Primary Care Provider [phone] Geno Montes MD Primary Care Provider Nolberto [place] MD Unavailable [phone] Angie Tapia Unavailable Alma Martinez DO Unavailable Alessio Alejandra DO Unavailable Unavailable Blair Judge RN Unavailable Angle Ruvalcaba RN Unavailable Encounter Details Date Type Department Care Team (Late st Contact Info) Description 12/31/2015 [facility] Outpatient Visit [facility] [address] [place] [address] [place] [address] [facility] [address] [place] [address] Social History Tobacco Use Types Packs/Day [...] Under Investigation 02/11/2021 02/11/2021 02/11/2021 11:33 PM COIL WINDER COVID-19 Under Investigation 02/20/2021 02/20/2021 02/20/2021 3:23 PM COIL WINDER COVID-19 Under Investigation 10/06/2021 10/06/2021 10/06/2021 4:25 PM CDT documented as of this encounter Care Teams Plate Painter Relationship Specialty Start Date End Date Alessio Alejandra DO PCP - General 10/04/10 06/22/22 Alessio Alejandra DO PCP - Attributed-[facility] 08/09/20 08/26/22 [place] [address] [address] [place] [address] PCP - General Family Medicine 06/23/22 11/18/22 [place] [address] [address] [place] [address] PCP - General 04/02/23 Nolberto [place] MD [address] [place] [address] PCP - Attributed-[facility] [place] 04/10/23 03/29/24 Alma Martinez DO [address] [place] [address] PCP - Attributed-[employer] 04/03/17 04/13/17 Alessio Alejandra DO PCP - Attributed-[employer] 04/14/17 05/01/17 [place] [address] [facility] [address] [place] [address] Rheumatology 05/22/15 Blair Sun DO [address] [facility] [address] [place] [address] Orthopedic Surgery 09/17/17 Gerry Sweeney MD [address] [facility] [address] [place] [address] Sprinkler Inspector Interventional Cardiology 03/23/19 [place] [address] [facility] [address] [place] [address] Physical Medicine and Rehabilitation 04/10/20 Angie Tapia 05/25/23 05/25/23 Blair Judge, RAVI [address] [facility] [address] [place] [address] Poultry Husbandry TeacherChip Silo Tender 04/01/24 04/01/24 Angle Ruvalcaba RN Poultry Husbandry TeacherChip Silo Tender 04/01/24 04/20/24 documented as of this encounter
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
[2024-05-10] MEDS: LOPERAMIDE HCL 2 MG CAPSULE 4 MG PO (01:38)
[2024-05-10] MEDS: GABAPENTIN 300 MG CAPSULE PO (01:38)
[2024-05-10 01:50] VITALS: BP 133/89; PULSE 73; RESP 17; O2SAT 97
== END 2024-05-10 02:02 ==
PROVIDERS: Emergency Provider Student in an Organized Health Care Education/Training Program
DX: G62.9 Polyneuropathy, unspecified (principal); R19.7 Diarrhea, unspecified; M06.9 Rheumatoid arthritis, unspecified; E83.119 Hemochromatosis, unspecified
CPT/HCPCS: 36415; 80053; 82550; 83735; 85025; 96361; 96374; 99284; A9270; J1885; J7120